=== PATIENT | female | born 1990 | race Caucasian/White ===

== ENCOUNTER → 2017-02-21 11:16 | Outpatient (CLI) | payer MEDICAID | END | disposition home or self-care (01) | LOC: D.LDO 11:16 | DX: O36.8190 Decreased fetal movements, unspecified trimester, not applicable or unspecified (principal); Z3A.00 Weeks of gestation of pregnancy not specified ==

== ENCOUNTER → 2017-02-25 11:44 | Outpatient (CLI) | payer MEDICAID | END | disposition home or self-care (01) | LOC: D.LDO 11:44 | DX: O36.8130 Decreased fetal movements, third trimester, not applicable or unspecified (principal); Z3A.37 37 weeks gestation of pregnancy ==

== ENCOUNTER → 2017-03-10 17:00 | Outpatient (CLI) | payer MEDICAID ==
[2017-03-10 18:19] LABS: APPEARANCE CLEAR (CLEAR); BILIRUBIN NEGATIVE (NEGATIVE); COLOR YELLOW (YELLOW); GLUCOSE NEGATIVE (NEGATIVE); KETONE SMALL mg/dL (NEGATIVE); LEUKOCYTE ESTERASE NEGATIVE (NEGATIVE); NITRITE NEGATIVE (NEGATIVE); PROTEIN NEGATIVE (NEGATIVE); UROBILINOGEN NORMAL (NORMAL)
[2017-03-12 15:23] VITALS: BMI 33.0
== END | disposition home or self-care (01) ==
LOC: D.LDO 17:00
PROVIDERS: Obstetrics & Gynecology
DX: O26.893 Other specified pregnancy related conditions, third trimester (principal); Z3A.38 38 weeks gestation of pregnancy

== ENCOUNTER 2017-03-12 00:27 | Inpatient (IN) | payer MEDICAID ==
[~2017-03-12] VITALS: Ht 162.6 cm; Wt 87.1 kg
[2017-03-12 15:23] VITALS: Ht 162.6 cm; Wt 87.1 kg
[2017-03-14 07:15] VITALS: BP 133/73
[2017-03-14] MEDS ORDERED: HYDROCODON-ACE1 EAC7 PO (12:06)
[2017-03-14] MEDS ORDERED: IBUPROFEN600 MG PO (12:06)
== END 2017-03-14 12:55 | disposition home or self-care (01) | DRG 775 ==
LOC: D.LD 00:27 → D.WS 17:53
PROVIDERS: ADMIT Obstetrics & Gynecology
PROC: 10907ZC Drainage of Amniotic Fluid, Therapeutic from Products of Conception, Via Natural or Artificial Opening (ICD-10-PCS; principal; 2017-03-12)
PROC: 10E0XZZ Delivery of Products of Conception, External Approach (ICD-10-PCS; 2017-03-12)
DX: O99.824 Streptococcus B carrier state complicating childbirth (principal); Z3A.39 39 weeks gestation of pregnancy; Z37.0 Single live birth